=== PATIENT | male | born 1995 ===

== ENCOUNTER 2017-05-19 14:53 | Emergency (ER) | payer BC ==
[2017-05-19 15:13] VITALS: BP 123/67
--- NOTE | 2017-05-19 15:31 | UC ---
UC General HPI - HPI Summary HPI Summary: Pt presents with request for STD testing. Pt denies recent STD exposure. Pt states that he has been with more "partners" this year than last, occasionally wears a condom and denies any symptoms of dysuria, penile discharge, testicular pain, chancre, or painful blisters. Denies any IV drug use or needle sharing. - History of Current Complaint Chief Complaint: UCSTDScreening Stated Complaint: PERSONAL Time Seen by Provider: 05/19/17 15:04 Hx Obtained From: Patient Current Severity: None - Allergy/Home Medications Allergies/Adverse Reactions: Allergies Allergy/AdvReac Type Severity Reaction Status Date / Time Amoxicillin Allergy Unknown Verified 05/19/17 15:14 Reaction Details cats Allergy Hives Uncoded 05/19/17 15:14 Home Medications: Home Medications NK [No Home Medications Reported] 05/19/17 [History Confirmed 05/19/17] PMH/Surg Hx/FS Hx/Imm Hx Previously Healthy: Yes - past history of chlamydia - Surgical History Surgical History: None - Family History Known Family History: Positive: Other - denies FMH fo STD - Social History Alcohol Use: Occasionally Substance Use Type: None Smoking Status (MU): Never Smoked Tobacco Review of Systems Constitutional: Negative Skin: Negative Eyes: Negative ENT: Negative Respiratory: Negative Cardiovascular: Negative Gastrointestinal: Negative Genitourinary: Negative Motor: Negative Neurovascular: Negative Musculoskeletal: Negative Neurological: Negative Psychological: Negative All Other Systems Reviewed And Are Negative: Yes Physical Exam Triage Information Reviewed: Yes Appearance: Well-Appearing Vital Signs: Initial Vital Signs Temp 98.9 F 05/19/17 15:09 Pulse 71 05/19/17 15:09 Resp 16 05/19/17 15:09 BP 123/67 05/19/17 15:09 Pulse Ox 98 05/19/17 15:09 Eye Exam: Normal Neck exam: Normal Respiratory Exam: Normal Cardiovascular Exam: Normal Abdominal Exam: Normal Musculoskeletal Exam: Normal Neurological Exam: Normal Psychological Exam: Normal Skin Exam: Normal Course/Dx - Differential Dx - Multi-Symptom Provider Diagnoses: Normal exam. STD screening Discharge - Discharge Plan Condition: Stable Disposition: HOME Patient Education Materials: Safe Sex (ED), Normal Exam (ED) Referrals: [facility] [Outside] Additional Instructions: Please follow up with your PCP or return to clinic.
[2017-05-19] MEDS ORDERED: HYDROcodone/ACETAMIN 5-325 MG* 1 TAB PO ONE (15:45)
[2017-05-20 10:39] LABS: Syphilis Index < 0.1 Index
== END 2017-05-19 16:21 | disposition home or self-care (01) ==
LOC: UCCORT 14:53
DX: Z11.3 Encounter for screening for infections with a predominantly sexual mode of transmission (principal); Z88.1 Allergy status to other antibiotic agents
CPT/HCPCS: 36415; 86592; 86695; 86696; 86703; 86706; 86803; 87389; 87491; 87591; 99201; G0463; G0475